=== PATIENT | female | born 1960 | race Caucasian/White ===

== ENCOUNTER 2016-08-22 13:53 | Emergency (ER) | payer MEDICARE, BC ==
[2016-08-22 14:51] LABS: HEMOGLOBIN 14.8 gm/dl (12.3-15.3); RED BLOOD COUNT 4.57 M/UL (4.00-5.10); WHITE BLOOD COUNT 13.8 K/UL (4.5-11.0)
[2016-08-22 15:20] LABS: BUN/CREATININE RATIO 13 (0-10)
== END 2016-08-22 17:36 | disposition home or self-care (01) ==
LOC: ER1 13:53
PROVIDERS: Emergency Medicine
DX: R10.13 Epigastric pain (principal); R19.7 Diarrhea, unspecified; E11.9 Type 2 diabetes mellitus without complications; I10 Essential (primary) hypertension; Z90.49 Acquired absence of other specified parts of digestive tract; Z79.84 Long term (current) use of oral hypoglycemic drugs; Z79.4 Long term (current) use of insulin; Z79.899 Other long term (current) drug therapy
CPT/HCPCS: 36415; 80053; 81001; 82150; 82550; 82553; 83690; 83874; 84484; 85025; 96374; 96375; 99284; J2270; J2405; J7030; J7050; Q9962

== ENCOUNTER → 2016-11-04 | Outpatient (CLI) | payer MEDICARE, BC | LOC: KOH-I 10:55 | DX: M54.5 Low back pain (principal); M47.897 Other spondylosis, lumbosacral region | CPT/HCPCS: 72110 ==